=== PATIENT | female | born 1950 | race Caucasian/White ===

== ENCOUNTER 2022-03-21 00:18 | Emergency (ER) | payer MEDICARE, OTHER ==
[2022-03-21 00:25] VITALS: RESP 18; BMI 21.2
[2022-03-21 00:43] VITALS: BP 167/98; PULSE 110; TEMP 98.4
== END 2022-03-21 00:55 | disposition left against medical advice (07) ==
LOC: FER 00:18
DX: R07.9 Chest pain, unspecified (principal)
CPT/HCPCS: 99282-25

== ENCOUNTER 2022-12-11 21:26 | Emergency (ER) | payer OTHER ==
[2022-12-11 21:46] VITALS: BP 126/74; PULSE 98; RESP 18; TEMP 98.1; BMI 23.0
== END 2022-12-11 22:35 | disposition home or self-care (01) ==
LOC: FER 21:26
PROC: 0T9B70Z Drainage of Bladder with Drainage Device, Via Natural or Artificial Opening (ICD-10-PCS; principal; 2022-12-11)
DX: R33.9 Retention of urine, unspecified (principal)
CPT/HCPCS: 99283-25

== ENCOUNTER 2023-01-18 11:17 | Emergency (ER) | payer OTHER ==
[2023-01-18 11:22] VITALS: BP 144/77; PULSE 102; RESP 18; TEMP 99.1; BMI 22.8
== END 2023-01-18 13:01 | disposition home or self-care (01) ==
LOC: FER 11:17
PROC: 0T9B70Z Drainage of Bladder with Drainage Device, Via Natural or Artificial Opening (ICD-10-PCS; principal; 2023-01-18)
DX: N13.9 Obstructive and reflux uropathy, unspecified (principal)
CPT/HCPCS: 87086; 87186; 99283-25